=== PATIENT | male | born 1980 | race Caucasian/White ===

== ENCOUNTER 2023-03-28 09:32 | Emergency (ER) | payer OTHER ==
[2023-03-28 10:11] LABS: HEMATOCRIT 33.4 % (38.4-49.7); HEMOGLOBIN 10.7 g/dL (12.9-16.9); MEAN CORPUSCULAR HEMOGLOBIN 23.8 pg (31.6-35.5); MEAN CORPUSCULAR VOLUME 74.2 fL (81.4-99.0); RED BLOOD CELL COUNT 4.5 M/uL (4.14-5.76); WHITE BLOOD CELL COUNT,WBC 11.6 K/uL (3.2-11.0)
[2023-03-28 10:45] LABS: ALBUMIN 3.1 g/dL (3.4-5.0); ALKALINE PHOSPHATASE 92 U/L (46-116); ASPARTATE AMNIOTRANSFERASE,AST 79 U/L (15-37); BLOOD UREA NITROGEN,BUN 6 mg/dL (7-18); CALCIUM 8.7 mg/dL (8.5-10.1); CARBON DIOXIDE,CO2 26 mmol/L (21-32); CHLORIDE,CL 93 mmol/L (100-108); CREATININE 0.7 mg/dL (0.8-1.3); ESTIMATED GFR 118 mL/min (>60); GLUCOSE RANDOM 91 mg/dL (74-106); LIPASE 89 U/L (73-393); POTASSIUM,K 3.9 mmol/L (3.6-5.2); SODIUM,NA 130 mmol/L (140-148)
[2023-03-28 11:08] LABS: A/G RATIO 0.6 (1.2-2.2); ALANINE AMINOTRANSFERASE,ALT 48 U/L (12-78); BILIRUBIN TOTAL 0.5 mg/dL (0.2-1.0); PROTEIN TOTAL,TP 8.4 g/dL (6.4-8.2)
[2023-03-28 11:12] LABS: ANION GAP 14.9 mmol/L (5.0-14.0)
[2023-03-28] MEDS ORDERED: oxyCODONE 5 MG Tab PO ONE (11:49)
[2023-03-28 12:06] LABS: PROTHROMBIN TIME 10.5 sec (9.2-10.6)
== END 2023-03-28 12:43 | disposition home or self-care (01) ==
LOC: JP.ED 09:32
DX: K63.89 Other specified diseases of intestine (principal); F17.210 Nicotine dependence, cigarettes, uncomplicated
CPT/HCPCS: 36415; 74177; 74177-26; 80053; 82378; 83690; 85027; 85610; 99284

== ENCOUNTER 2023-04-01 14:43 | Emergency (ER) | payer OTHER | END 2023-04-01 16:47 | disposition home or self-care (01) | LOC: JP.ED 14:43 | DX: G89.3 Neoplasm related pain (acute) (chronic) (principal); N13.1 Hydronephrosis with ureteral stricture, not elsewhere classified; R19.00 Intra-abdominal and pelvic swelling, mass and lump, unspecified site; R97.0 Elevated carcinoembryonic antigen [CEA] | CPT/HCPCS: 99283 ==

== ENCOUNTER 2024-06-30 15:45 | Emergency (ER) | payer OTHER ==
[2024-06-30 17:24] LABS: BASOPHILS ABSOLUTE AUTO 0.04 K/uL (0.00-0.10); BASOPHILS PERCENT AUTO 0.5 % (0.1-1.3); EOSINOPHILS ABSOLUTE AUTO 0.15 K/uL (0.00-0.40); EOSINOPHILS PERCENT AUTO 1.9 % (0.0-5.4); HEMATOCRIT 35.5 % (38.4-49.7); HEMOGLOBIN 12.3 g/dL (12.9-16.9); IMMATURE GRAN ABSOLUTE AUTO 0.02 K/uL (0.00-0.23); IMMATURE GRAN PERCENT AUTO 0.3 % (0.0-0.7); LYMPHOCYTES ABSOLUTE AUTO 1.23 K/uL (0.8-3.3); LYMPHOCYTES PERCENT AUTO 15.6 % (11.4-47.7); MEAN CORPUSCULAR HEMOGLOBIN 32.7 pg (31.6-35.5); MEAN CORPUSCULAR HGB CONC 34.6 g/dL (31.6-35.5); MEAN CORPUSCULAR VOLUME 94.4 fL (81.4-99.0); MONOCYTES PERCENT AUTO 5.1 % (3.3-12.6); NEUTROPHILS ABSOLUTE AUTO 6.06 K/uL (1.0-7.6); NEUTROPHILS PERCENT AUTO 76.6 % (40.0-78.1); PLATELET COUNT,PLT 284 K/uL (130-375); RED BLOOD CELL COUNT 3.76 M/uL (4.14-5.76); WHITE BLOOD CELL COUNT,WBC 7.9 K/uL (3.2-11.0)
[2024-06-30 17:24] LABS: APPEARANCE,URINE CLEAR (CLEAR); BILIRUBIN,URINE LARGE (NEGATIVE); COLOR,URINE YELLOW (YELLOW); GLUCOSE,URINE NEGATIVE (NEGATIVE); KETONES,URINE NEGATIVE (NEGATIVE); LEUKOCYTE ESTERASE,URINE NEGATIVE (NEGATIVE); NITRITE,URINE NEGATIVE (NEGATIVE); OCCULT BLOOD,URINE NEGATIVE (NEGATIVE); PROTEIN,URINE NEGATIVE (NEGATIVE); UROBILINOGEN,URINE 0.2 EU/dL (0.2-1.0)
[2024-06-30 17:38] LABS: INR 1.4; PROTHROMBIN TIME 14.4 sec (9.2-10.6)
[2024-06-30 17:38] LABS: AMORPHOUS SEDIMENT,URINE NOT SEEN; BACTERIA,URINE NOT SEEN; EPITHELIAL CELLS,URINE RARE; MUCUS,URINE NOT SEEN; RBC,URINE 0-5 (0-5); WBC,URINE 0-5 (0-5)
[2024-06-30 17:42] LABS: A/G RATIO 0.8 (1.2-2.2); ALANINE AMINOTRANSFERASE,ALT 192 U/L (12-78); ALBUMIN 3.7 g/dL (3.4-5.0); ALKALINE PHOSPHATASE 333 U/L (46-116); BILIRUBIN TOTAL 12.7 mg/dL (0.2-1.0); BLOOD UREA NITROGEN,BUN 7 mg/dL (7-18); CALCIUM 9.7 mg/dL (8.5-10.1); CARBON DIOXIDE,CO2 28 mmol/L (21-32); CHLORIDE,CL 97 mmol/L (100-108); CREATININE 0.8 mg/dL (0.8-1.3); EST CRCL DRUG DOSING (CG) 127.82 mL/min; ESTIMATED GFR 113 mL/min (>60); GLUCOSE RANDOM 98 mg/dL (74-106); POTASSIUM,K 3.8 mmol/L (3.6-5.2); SODIUM,NA 136 mmol/L (140-148)
[2024-06-30] MEDS: Iopamidol 612 MG/ML 100 ML Bottle IV SCH (17:47)
[2024-06-30 17:48] LABS: ANION GAP 14.8 mmol/L (5.0-14.0)
[2024-06-30] MEDS: Sodium Chloride 0.9% 80 ML IV SCH (17:48)
[2024-06-30 17:56] LABS: PROTEIN TOTAL,TP 8.5 g/dL (6.4-8.2)
[2024-06-30 17:57] LABS: ASPARTATE AMNIOTRANSFERASE,AST 140 U/L (15-37)
== END 2024-06-30 20:42 | disposition home or self-care (01) ==
LOC: JP.ED 15:45
DX: K83.8 Other specified diseases of biliary tract (principal); C78.7 Secondary malignant neoplasm of liver and intrahepatic bile duct; Z79.899 Other long term (current) drug therapy
CPT/HCPCS: 36415; 74177; 80053; 81001; 83690; 85025; 85610; 99284; J3490; Q9967